=== PATIENT | male | born 1960 | race Caucasian/White ===

== ENCOUNTER 2018-06-24 20:52 | Emergency (ER) | payer OTHER ==
[~2018-06-24] VITALS: Ht 185.4 cm; Wt 93.0 kg
--- OUTSIDE RECORDS SUMMARY | ~2018-06-24 | XMS | Encounter Summary ---
Demographics + + + | Address | [address] | | | [place] [address] | + + + | Home Phone | | + + + | Preferred Language | Unknown | + + + | Marital Status | | + + + | Zoroastrian Affiliation | Unknown | + + + | Race | Unknown | + + + | Ethnic Group | Unknown | + + + Author + + + | Author | and [facility] | | | and [place] | + + + | Organization | [facility] | | | and [place] | + + + | Address | Unknown | + + + | Phone | Unavailable | + + + Support + + + + + | Name | Relationship | Address | Phone | + + + + + | Kang Turk | ECON | [address] | | | | | [place] [address] | | + + + + + | Lesli Turk | ECON | Unknown | | + + + + + | Maliha Turk | ECON | [address] | | | | | Unknown | | + + + + + | Lesli Turk | ECON | Unknown | | + + + + + Care Team Providers + +------+ + | Care Director Of Primary Name | Role | Phone | + +------+ + | No, Physician | PCP | Unavailable | + +------+ + Reason for Visit + + + | Reason | Comments | + + + | Medication Refill | | + + + Encounter Details +--------+--------+ + + + | Date | Type | Department | Care Team | Description | +--------+--------+ + + + | 06/01/ | Refill | [facility] | Lance Casas MD | Medication Refill | | 2019 | | CARDIOLOGY [address] | | | | | [place], | | | | | | [place] [address] | | | | | | [phone] | | | +--------+--------+ + + + Social History + +-------+ +--------+------+ | Tobacco Use | Types | Packs/Day | Years | Date | | | | | Used | | + +-------+ +--------+------+ | Never Smoker | | | | | + +-------+ +--------+------+ + +---+---+ + | Smokeless Tobacco: | | | Quit: | | Former User | | | 07/12/18 | | | | | 97 | + +---+---+ + + + +---------+ + | Alcohol Use | Drinks/We | oz/Week | Comments | | | ek | | | + + +---------+ + | Yes | 1 Cans | 1.2 | | | | of beer | | | | | 1 Glasses | | | | | of wine | | | + + +---------+ + + + + | Sex Assigned at | Date Recorded | | | | + + + | Not on file | | + + + + + + + | Job Start Date | Occupation | Industry | + + + + | Not on file | Not on file | Not on file | + + + + + + + + | Travel History | Travel Start | Travel End | + + + + + + | No recent travel history available. | + + documented as of this encounter Functional Status + + + + | Functional Status | Response | Date of Assessment | + + + + | Are you deaf or do you have serious | No | 07/14/2016 | | difficulty hearing? | | | + + + + | Are you blind or do you have serious | No | 07/14/2016 | | difficulty seeing, even when wearing | | | | glasses? | | | + + + + | Do you have serious difficulty walking or | No | 07/14/2016 | | climbing stairs? (5 years old or older) | | | + + + + | Do you have difficulty dressing or bathing? | No | 07/14/2016 | | (5 years old or older) | | | + + + + | Because of a physical, mental, or emotional | No | 07/14/2016 | | condition, do you have difficulty doing | | | | errands alone such as visiting a doctor's | | | | office or shopping? [15 years old or | | | | older)] | | | + + + + + + + + | Cognitive Status | Response | Date of Assessment | + + + + | Because of a physical, mental, or emotional | No | 07/14/2016 | | condition, do you have serious difficulty | | | | concentrating, remembering, or making | | | | decisions? (5 years old or older) | | | + + + + documented as of this encounter Plan of Treatment Not on filedocumented as of this encounter Visit Diagnoses Not on filedocumented in this encounter"
--- OUTSIDE RECORDS SUMMARY | ~2018-06-24 | XMS | Encounter Summary ---
Demographics + + + | Address | [address] | | | [place] [address] | + + + | Home Phone | | + + + | Preferred Language | Unknown | + + + | Marital Status | | + + + | Yarsani Affiliation | Unknown | + + + | Race | Unknown | + + + | Ethnic Group | Unknown | + + + Author + + + | Author | [facility] | | | and [place] | + + + | Organization | [facility] | | | and [place] | + + + | Address | Unknown | + + + | Phone | Unavailable | + + + Support + + + + + | Name | Relationship | Address | Phone | + + + + + | Kang Turk | ECON | [address] | | | | | [place] [address] | | + + + + + | Lesli Turk | ECON | Unknown | | + + + + + | Maliha Turk | ECON | [address] | | | | | Unknown | | + + + + + | Lesli Turk | ECON | Unknown | | + + + + + Care Team Providers + +------+ + | Care Body And Fender Mechanic Name | Role | Phone | + [...] | | | | | | [place] [address] | | | | | | [phone] | | | +--------+--------+ + + + [...]
--- OUTSIDE RECORDS SUMMARY | ~2018-06-24 | XMS | Clinical Summary ---
Demographics + + + | Address | [address] | | | [place] [address] | + + + | Home Phone | | + + + | Preferred Language | Unknown | + + + | Marital Status | | + + + | Christianity Affiliation | Unknown | + + + | Race | Unknown | + + + | Ethnic Group | Unknown | + + + Author + + + | Author | [facility] | | | and [place] | + + + | Organization | [facility] | | | and [place] | + + + | Address | Unknown | + + + | Phone | Unavailable | + + + Support + + + + + | Name | Relationship | Address | Phone | + + + + + | Kang Turk | ECON | [address] | | | | | [place] [address] | | + + + + + | Lesli Turk | ECON | Unknown | | + + + + + | Maliha Turk | ECON | [address] | | | | | Unknown | | + + + + + | Lesli Turk | ECON | Unknown | | + + + + + Care Team Providers + +------+ + | Care Occupational Therapy Program Director Name | Role | Phone | + +------+ + | No, Physician | PP | Unavailable | + +------+ + Allergies No Known Allergies Medications + + + +---------+------+------+-------+ | Medication | Sig | Dispensed | Refills | Star | End | Statu | | | | | | t | Date | s | | | | | | Date | | | + + + +---------+------+------+-------+ | cetirizine | Take 10 mg by mouth | | 0 | | | Activ | | (ZYRTEC) 10 mg | Daily as needed for | | | | | e | | tablet | Allergies. | | | | | | + + + +---------+------+------+-------+ | acetaminophen | Take 2 tablets by | 120 | 0 | 06/0 | | Activ | | (TYLENOL) 325 mg | mouth every 6 hours | tablet | | 5/20 | | e | | tablet | as needed for Pain | | | 17 | | | | | or Fever. | | | | | | + + + +---------+------+------+-------+ | aspirin 81 mg | Take 1 tablet by | 30 | 0 | 06/0 | | Activ | | chewable tablet | mouth Daily. | tablet | | 5/20 | | e | | | | | | 17 | | | + + + +---------+------+------+-------+ | nitroglycerin | PLACE 1 TABLET UNDER | 25 | 11 | 02/2 | | Activ | | (NITROSTAT) 0.4 mg | THE TONGUE EVERY 5 | tablet | | 3/20 | | e | | SL tablet | MINUTES NEEDED | | | 18 | | | | | FOR CHEST PAIN | | | | | | + + + +---------+------+------+-------+ | lisinopril | TAKE ONE TABLET BY | 90 | 3 | 11/1 | | Activ | | (PRINIVIL,ZESTRIL) | MOUTH EVERY DAY | tablet | | 6/20 | | e | | 2.5 MG tablet | | | | 18 | | | + + + +---------+------+------+-------+ | atorvaSTATin | Take 1 tablet by | 90 | 3 | 12/10 | | Activ | | (LIPITOR) 80 MG | mouth nightly. | tablet | | 6/20 | | e | | tablet | | | | 18 | | | + + + +---------+------+------+-------+ | metoprolol | TAKE ONE TABLET BY | 90 | 3 | / | | Activ | | succinate | MOUTH DAILY | tablet | | 04/28 | | e | | (TOPROL-XL) 50 mg 24 | | | | 19 | | | | hr tablet | | | | | | | + + + +---------+------+------+-------+ | metoprolol | Take 1 tablet by | 90 | 1 | 10/10 | 04/2 | Disco | | succinate | mouth Daily. | tablet | | 08/28 | 20 | ntinu | | (TOPROL-XL) 50 mg 24 | | | | 18 | 19 | ed | | hr tablet | | | | | | | + + + +---------+------+------+-------+ Active Problems + + + | Problem | Noted Date | + + + | Acute ST elevation myocardial infarction (STEMI) involving left | 07/14/2016 | | anterior descending coronary artery | | + + + | Dyslipidemia | 07/14/2016 | + + + | Hypokalemia | 07/14/2016 | + + + Encounters +--------+--------+ + + + | Date | Type | Specialty | Care Team | Description | +--------+--------+ + + + | 06/01/ | Refill | | Lance Casas MD | Medication Refill | | 2019 | | | | | +--------+--------+ + + + from Last 3 Months Family History + +------+--------+ + | Relation | Name | Status | Comments | + +------+--------+ + | Father | | Alive | | + +------+--------+ + | Mother | | Alive | | + +------+--------+ + Social History + +-------+ +--------+------+ | [...] recent travel history available. | + + Last Filed Vital Signs + + + + | Vital Sign | Reading | Time Taken | + + + + | Blood Pressure | 118/76 | 10/26/2017928 PDT | + + + + | Pulse | 60 | 10/26/2017928 PDT | + + + + | Temperature | 37.1 C (98.8 F) | 07/14/2016699 PDT | + + + + | Respiratory Rate | 18 | 10/26/2017928 PDT | + + + + | Oxygen Saturation | 95% | 07/14/2016699 PDT | + + + + | Inhaled Oxygen | - | - | | Concentration | | | + + + + | Weight | 90.2 kg (198 lb 13.7 | 10/26/2017928 PDT | | | oz) | | + + + + | Height | 185.4 cm (6' 1") | 10/26/2017928 PDT | + + + + | Body Mass Index | 26.24 | 10/26/2017928 PDT | + + + + Plan of Treatment + + + + + | Health Maintenance | Due Date | Last Done | Comments | + + + + + | Hepatitis C | | | | | Screening | 2 | | | + + + + + | Vaccine: | | | | | Dtap/Tdap/Td (1 - | 1 | | | | Tdap) | | | | + + + + + | Vaccine: | | | | | Pneumococcal 19-64 | 1 | | | | (PPSV23 only) Medium | | | | | Risk (1 of 1 - | | | | | PPSV23) | | | | + + + + + | Colorectal Cancer | | | | | Screening | 2 | | | | (Colonoscopy) | | | | + + + + + | Vaccine: Zoster (1 | | | | | of 2) | 2 | | | + + + + + | Vaccine: Influenza | | | | | (Season Ended) | 9 | | | + + + + + Implants + +-------+--------+ +--------+--------+--------+ | Implanted | Type | Area | Manufacture | Device | Shelf | Model | | | | | r | | Expira | / | | | | | | Identi | tion | Serial | | | | | | fier | Date | / Lot | + +-------+--------+ +--------+--------+--------+ | Promus Premier Monorail | Stent | N/A: | [place] | | 03/19/ | [id number] | | [employer] [place] | | [place] | [employer] | | 2017 | [id number] | | Chromium Coronary Stent | | ry | JONAS [employer] | | | 0O / | | System Implanted: Qty: 1 on | | | | | | / | | 07/12/2016 by Elizabeth Talavera | | | | | | 635 | | MD Vika | | | | | | | + +-------+--------+ +--------+--------+--------+ Results Not on filefrom Last 3 Months Insurance +-------+--------+ +--------+ +---------+------+ | Payer | Benefi | Subscriber | Effect | Phone | Address | Type | | | t Plan | ID | tavia | | | | | | / | | Dates | | | | | | Group | | | | | | +-------+--------+ +--------+ +---------+------+ | GEHA | GEHA | [id number] | 07/13/19 | [phone] | | PPO | | | [employer] | | 17-Pre | 6 | | | | | PPO | | sent | | | | +-------+--------+ +--------+ +---------+------+ + +--------+ +--------+ + + | Guarantor Name | Accoun | Relation to | Date | Phone | Billing Address | | | t Type | Patient | of | | | | | | | | | | + +--------+ +--------+ + + | Kang Turk | Person | Self | [birth year] | [address] | | | al/Fam | | 1960 | [phone] | [place] [address] | | | shari | | | 1 (Home) | | + +--------+ +--------+ + + Advance Directives Patient has advance care planning documents, and code status on file. For more information, please contact:[facility] [place] [address] + + + + + | Code Status | Date | Date | Comments | | | Activated | Inactivated | | + + + + + | Full Code | 07/13/2016 | 07/14/2016 | | | | 8:02 | 13:56 | | + + + + +
--- OUTSIDE RECORDS SUMMARY | ~2018-06-24 | XMS | Clinical Summary ---
Demographics + + + | Address | [address] | | | [place] [address] | + + + | Home Phone | | + + + | Preferred Language | Unknown | + + + | Marital Status | | + + + | Hinduism Affiliation | Unknown | + + + | Race | Unknown | + + + | Ethnic Group | Unknown | + + + Author + + + | Author | and [facility] | | | and [place] | + + + | Organization | [facility] | | | and [place] | + + + | Address | Unknown | + + + | Phone | Unavailable | + + + Support + + + + + | Name | Relationship | Address | Phone | + + + + + | Kang Turk | ECON | [address] | | | | | [place] [address] | | + + + + + | Lesli Turk | ECON | Unknown | | + + + + + | Maliha Turk | ECON | [address] | | | | | Unknown | | + + + + + | Lesli Turk | ECON | Unknown | | + + + + + Care Team Providers + +------+ + | Care Visual Manager Name | Role | Phone | + [...] N/A: | [place] | | 03/19/ | [id number] | | [employer] [place] | | [place] | [employer] | | 2017 | [id number] | | Chromium Coronary Stent | | [...] +--------+ +---------+------+ | GEHA | GEHA | [id number] | 07/13/19 | [phone] | | PPO [...] Person | Self | [birth year] | [address] | | | al/Fam | | 1960 | [phone] | [place] [address] | | | shari | | | 1 (Home) | | + +--------+ +--------+ + + Advance Directives Patient has advance care planning documents, and code status on file. For more information, please contact:[facility] [place] [address] + + + + + | Code Status | Date | Date | Comments | | | Activated | Inactivated | | + + + + + | Full Code | 07/13/2016 | 07/14/2016 | | | | 8:02 | 13:56 | | + + + + +
[2018-06-24] MEDS ORDERED: LISINOPRIL2.5 MG PO (21:04)
[2018-06-24] MEDS ORDERED: METOPROLOL SUCC50 MG PO (21:04)
[2018-06-24] MEDS ORDERED: ATORVASTATIN CA80 MG PO (21:04)
[2018-06-24] MEDS ORDERED: ASPIR-LOW81 MG PO (21:05)
== END 2018-06-24 22:06 | disposition home or self-care (01) ==
LOC: ED 20:52
DX: S05.02XA Injury of conjunctiva and corneal abrasion without foreign body, left eye, initial encounter (principal); I25.2 Old myocardial infarction; Z79.82 Long term (current) use of aspirin; Z79.899 Other long term (current) drug therapy; X58.XXXA Exposure to other specified factors, initial encounter
CPT/HCPCS: 99282